=== PATIENT | male | born 1970 | race Caucasian/White ===

== ENCOUNTER 2017-07-19 20:28 | Emergency (ER) | payer OTHER ==
[~2017-07-19] VITALS: Ht 170.2 cm; Wt 71.7 kg
[2017-07-19 20:35] VITALS: BP 143/76; PULSE 83; RESP 16; TEMP 98; O2SAT 98
[2017-07-19] MEDS ORDERED: PROPARACAINE HCL 0.5% OPHT SOLN 15 ML BTL RIGHT EYE ONE (21:00)
--- NOTE | 2017-07-19 21:06 | PD ---
HPI . Sensation of a foreign body in right eye Chief Complaint: Eye Problems/Injury Time Seen by Provider: 20:58 Travel History International Travel<30 days: No Contact w/Intl Traveler<30days: No Traveled to known affect area: No History of Present Illness HPI 47-year-old male patient presents to the emergency department for evaluation of sensation of a foreign body in his right eye. [place] Patient had safety glasses on however wind blew and upward and into his right eye. Patient has flushed his eye out numerous times since that happened this afternoon however still feels the sensation of a foreign body in his right eye. Patient denies any trouble seeing or blurred vision but states it's hard to keep his eye open due to the pain. Patient denies any major medical history. Patient does not take any daily medication. He does not wear contacts. Only allergy patient knows of is aspirin. PFSH Past Medical History Medical History: Denies Significant Hx Diminished Hearing: No Tetanus Vaccination: Unknown Influenza Vaccination: No ?: Not Past Surgical History Appendectomy: Yes Social History Alcohol Use: No Tobacco Use: No Substance Use: No Allergies-Medications (Allergen,Severity, Reaction): Coded Allergies: aspirin (Verified Allergy, Severe, Swelling, 07/19/17) EYE AND FACIAL SWELLING Review of Systems Except as stated in HPI: all other systems reviewed are Neg Eyes: Positive: Foreign Body Sensation (right eye) Physical Exam Narrative GENERAL: Well-nourished, well-developed 47-year-old male patient in no acute distress. SKIN: Focused skin assessment warm/dry. HEAD: Normocephalic. Atraumatic EYES: Right eye injected. Fluorescein dye uptake located at 10 o'clock over the iris, not in the central vision. PERRLA demonstrated, extraocular motions intact bilaterally. Visual acuity: Right eye 20/30, left eye 20/25, bilateral eyes 20/25 NECK: Supple, trachea midline. No JVD or lymphadenopathy. CARDIOVASCULAR: Regular rate and rhythm without murmurs, gallops, or rubs. RESPIRATORY: Breath sounds equal bilaterally. No accessory muscle use. GASTROINTESTINAL: Abdomen soft, non-tender, nondistended. MUSCULOSKELETAL: No cyanosis, or edema. BACK: Nontender without obvious deformity. No CVA tenderness. Data Data Last Documented VS Vital Signs Date Time Temp Pulse Resp B/P (MAP) Pulse Ox O2 Delivery O2 Flow Rate FiO2 07/19/17 20:35 98.0 83 16 143/76 (98) 98 Orders Orders Proparacaine 0.5% Opth Soln (Alcaine 0.5 (07/19/17 21:00) MDM Medical Decision Making Medical Screen Exam Complete: Yes Emergency Medical Condition: Yes Differential Diagnosis Differential diagnoses include but not limited to corneal abrasion, foreign body in eye, corneal ulceration, conjunctivitis Narrative Course 47-year-old male patient presents to the emergency department for evaluation of foreign body sensation in his right eye. Proparacaine drops administered to right eye and fluorescein stain and with lamp used to thoroughly examine the eye. Fluorescein dye uptake located at 10:00 over the iris, not in the central vision. Based on patient's symptoms, clinical presentation, vital sign review and physical exam it is not necessary to admit the patient to the hospital or keep the patient in the emergency department for further evaluation. Patient will be discharged home with a prescription for ophthalmic erythromycin ointment. Diagnosis Primary Impression: Corneal abrasion, right Qualified Codes: S05.01XA - Injury of conjunctiva and corneal abrasion without foreign body, right eye, initial encounter Referrals: [employer] Patient Instructions: Corneal Abrasion (ED), General Instructions Additional Instructions: Please return to emergency department if your symptoms return or worsen. Follow-up with cardiology technician with signs or symptoms of persistent infection or worsening vision. Follow up with your primary care provider. Take medications as prescribed. Med/Other Pt SpecificInfo: Prescription(s) given Scripts Erythromycin Opth Oint (Erythromycin Opth Oint) 5 Mg/Gm Oint 1 APPLIC RIGHT EYE QID for Infection, #1 TUBE 0 Refills Prov: Olivia Young 07/19/17 Disposition: 01 DISCHARGE HOME Condition: Stable Olivia Young Jul 19, 2017 21:06
[2017-07-19] MEDS ORDERED: ERYTOIN10 RIGHT EYE (21:31)
== END 2017-07-19 22:21 | disposition home or self-care (01) ==
LOC: PHEFT 20:28
DX: S05.01XA Injury of conjunctiva and corneal abrasion without foreign body, right eye, initial encounter (principal); X58.XXXA Exposure to other specified factors, initial encounter; Y93.H3 Activity, building and construction; Y99.0 Civilian activity done for income or pay
CPT/HCPCS: 99283